=== PATIENT | male | born 1975 | race Caucasian/White ===

== ENCOUNTER 2016-10-09 17:08 | Emergency (ER) | payer SELFPAY ==
[~2016-10-09] VITALS: Ht 175.3 cm; Wt 73.9 kg
[~2016-10-09 17:08] MED LIST: CEFD300C3 PO; CHLO118L6 TP; MUPI22OI2 TP; SULF1TAB35 PO
--- OUTSIDE RECORDS SUMMARY | 2016-10-09 17:14 | XMS REPORT ---
Author JAMEL Hall Organization [employer] Address Unknown Phone Unavailable Care Team Providers Care Chemical Production Technician Name Role Phone JAMEL UMANZOR CP Unavailable Allergies, Adverse Reactions, Alerts Substance Reaction Event Type N.K.D.A. Info Not Available Non Drug Allergy Problems Problem Type Condition Code Onset Dates Condition Status Assessment Impetigo L01.00 Active Assessment Bipolar affective disorder, current episode depressed, current episode severity unspecified F31.30 Active Problem Bipolar affective disorder, current episode depressed, current episode severity unspecified F31.30 Active Medications Medication Code System Code Instructions Start Date End Date Status Dosage Bactrim DS [facility] [address]-92 800-160 MG Orally Twice a day February 08, 2016 February 18, 2016 1 tablet Celexa [facility] [address]-79 20 mg Orally Once a day February 08, 2016 1 tablet Abilify [facility] [address]-63 5 mg Orally Once a day February 08, 2016 1 tablet Procedures Procedure Coding System Code Date Office Visit, New Pt., Level 3 CPT-4 78721 February 08, 2016 Vital Signs Date/Time: February 08, 2016 Cardiac Monitoring Heart Rate 82 bpm Weight 165.3 lbs Height 69.0 in Blood Pressure Diastolic 84 mmHg Blood Pressure Systolic 132 mmHg Results No Known Results Summary Purpose [employer] Submission
[2016-10-09] MEDS ORDERED: CITA40TA19 PO (17:18)
--- NOTE | 2016-10-09 17:52 | ED Integumentary General ---
General Chief Complaint: Skin/Wound Problems Stated Complaint: RASH/FATIGUE Nursing Triage Note: Pt reports being more tired than normal for 2 weeks. Pt also reports various "sores" all over body off and on x4 years. 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 Source: patient Exam Limitations: no limitations History of Present Illness Time seen by provider: 17:47 Initial Comments The patient presents with a complaint of recurring skin lesions. He reports he has been told that these are MRSA. This has been a very intermittent problem over the past 4 years or so. He reports that after he gets a lesion it heaps up and then opens and drains a material that ultimately turns black. He states there is no creamy white or yellow discharge. He freely admits that he picks at these which seems to make things worse. He does not describe any streaking or oozing Timing/Duration: week, getting worse Possible Cause: no cause identified Allergies and Home Medications Allergies Coded Allergies: No Known Drug Allergies (Unverified , 03/10/15) Home Medications Citalopram Hydrobromide 40 Mg Tablet 40 MG PO DAILY (Reported) Constitutional: see HPI EENTM: no symptoms reported Respiratory: no symptoms reported Cardiovascular: no symptoms reported Gastrointestinal: no symptoms reported Genitourinary: no symptoms reported Musculoskeletal: no symptoms reported Skin: see HPI Psychiatric/Neurological: Other Endocrine: No Symptoms Reported Hematologic/Lymphatic: No Symptoms Reported Past Jhkaizz-[id number]-Oswmxv Hx Patient Social History Recent Foreign Travel: No Contact w/Someone Who Travel: No Recent Infectious Disease Expo: No Immunizations Up To Date Tetanus Booster (TDap): Unknown Surgeries HX Surgeries: Yes Surgeries: Eye Surgery, Orthopedic Respiratory Hx Respiratory Disorders: No Cardiovascular Hx Cardiac Disorders: No Neurological Hx Neurological Disorders: No Genitourinary Hx Genitourinary Disorders: No Gastrointestinal Hx Gastrointestinal Disorders: No Musculoskeletal Hx Musculoskeletal Disorders: No Cancer Hx Cancer: No Psychosocial Hx Psychiatric Problems: Yes Behavioral Health Disorders: Depression Physical Exam Vital Signs Vital Sign - Last 12Hours 10/09/16 17:15 Temp 98.8 Pulse 106 Resp 18 B/P 136/63 Pulse Ox 99 O2 Delivery Room Air Capillary Refill : Less Than 3 Seconds General Appearance: WD/WN no apparent distress HEENT: normal ENT inspection Neck: full range of motion Cardiovascular: normal peripheral pulses regular rate, rhythm no edema no gallop no JVD no murmur Respiratory: chest non-tender lungs clear normal breath sounds no respiratory distress no accessory muscle use Gastrointestinal: normal bowel sounds non tender soft no organomegaly no pulsatile mass Extremities: normal range of motion non-tender normal inspection no pedal edema no calf tenderness normal capillary refill pelvis stable 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 There is no streaking up the limb from these. Other lesions look more circular and are resolving these are primarily over the right greater trochanter and to a lesser degree the left. There are many scars about the shoulders and arms. Progress/Results/Core Measures Results/Orders Vital Signs/I&O Vital Sign - Last 12Hours 10/09/16 17:15 Temp 98.8 Pulse 106 Resp 18 B/P 136/63 Pulse Ox 99 O2 Delivery Room Air Blood Pressure Mean: 87 Departure Impression Impression: Primary Impression: cellulitis Disposition: 01 HOME, SELF-CARE Condition: Stable/Unchanged Departure-Patient Inst. Decision time for Depature: 17:55 Referrals: [facility] (PCP/Family) Primary Care Physician Patient Instructions: Cellulitis (Skin Infection), Adult (DC) Add. Discharge Instructions: All discharge instructions reviewed with patient and/or family. Voiced understanding. Cover areas to avoid scratching and soft damage to skin. Clean areas daily with peroxide Take doxycycline as prescribed Get your provider to refer you to a patient transport officer Scripts Doxycycline Hyclate 100 Mg [id number] Mg PO twice a day #20 CAP Prov:GUERDA LAGOS MD 10/09/16 GUERDA LAGOS MD Oct 09, 2016 17:52
[2016-10-09] MEDS ORDERED: DOXY100C2 PO (17:57)
[2016-10-09 17:59] VITALS: BP 136/63
== END 2016-10-09 17:59 | disposition home or self-care (01) ==
LOC: EDUNIT# 17:08 → ER 17:10
DX: L03.113 Cellulitis of right upper limb (principal); L03.114 Cellulitis of left upper limb
CPT/HCPCS: 99281